=== PATIENT | male | born 1945 | race Two or more races ===

== ENCOUNTER 2017-08-01 08:42 | Emergency (ER) | payer OTHER, MEDICAID ==
[~2017-08-01] VITALS: Ht 160 cm; Wt 106.6 kg
[~2017-08-01 08:42] MED LIST: AMO250C PO; MECL-87 PO
[2017-08-01 09:09] VITALS: BP 128/76
== END 2017-08-01 09:30 | disposition home or self-care (01) ==
LOC: ER 08:42
DX: M54.41 Lumbago with sciatica, right side (principal); F17.210 Nicotine dependence, cigarettes, uncomplicated; M19.90 Unspecified osteoarthritis, unspecified site; Z88.6 Allergy status to analgesic agent; Z90.49 Acquired absence of other specified parts of digestive tract; J44.9 Chronic obstructive pulmonary disease, unspecified

== ENCOUNTER 2017-09-12 09:16 | Emergency (ER) | payer OTHER, MEDICAID ==
[~2017-09-12] VITALS: Ht 160 cm; Wt 105.2 kg
[2017-09-12 09:34] VITALS: BP 134/68
[2017-09-12] MEDS ORDERED: KETOROLAC TROMETH 60MG/2ML VIAL IM ONE (10:15)
[2017-09-12] MEDS ORDERED: HYDROcodone-ACET 10/325MG TAB PO ONE (10:15)
== END 2017-09-12 10:15 | disposition left against medical advice (07) ==
LOC: ER 09:16
DX: S33.5XXA Sprain of ligaments of lumbar spine, initial encounter (principal); J40 Bronchitis, not specified as acute or chronic; M19.90 Unspecified osteoarthritis, unspecified site; J44.9 Chronic obstructive pulmonary disease, unspecified; F17.210 Nicotine dependence, cigarettes, uncomplicated; Z79.899 Other long term (current) drug therapy; Z88.6 Allergy status to analgesic agent; X58.XXXA Exposure to other specified factors, initial encounter; Y93.89 Activity, other specified; Y92.89 Other specified places as the place of occurrence of the external cause; Y99.8 Other external cause status
CPT/HCPCS: 99282; J1885

== ENCOUNTER 2017-11-25 15:15 | Emergency (ER) | payer MEDICAID, OTHER ==
[~2017-11-25] VITALS: Ht 162.6 cm; Wt 104.3 kg
[2017-11-25 15:25] VITALS: BP 150/70
[2017-11-25] MEDS ORDERED: KETOROLAC TROMETH 60MG/2ML VIAL IM ONE (16:00)
== END 2017-11-25 19:04 | disposition home or self-care (01) ==
LOC: ER 15:18
DX: M79.604 Pain in right leg (principal); M79.1 Myalgia; F17.210 Nicotine dependence, cigarettes, uncomplicated; Z88.6 Allergy status to analgesic agent; Z88.1 Allergy status to other antibiotic agents
CPT/HCPCS: 93971

== ENCOUNTER 2019-02-24 10:58 | Emergency (ER) | payer OTHER ==
[~2019-02-24] VITALS: Ht 160 cm; Wt 114.3 kg
[2019-02-24 11:07] VITALS: BP 121/55
== END 2019-02-24 11:52 | disposition home or self-care (01) ==
LOC: ER 11:04
DX: B35.1 Tinea unguium (principal); M79.675 Pain in left toe(s); M79.674 Pain in right toe(s); G89.29 Other chronic pain; F17.210 Nicotine dependence, cigarettes, uncomplicated; Z88.6 Allergy status to analgesic agent

== ENCOUNTER 2019-03-09 18:18 | Emergency (ER) | payer OTHER ==
[~2019-03-09] VITALS: Ht 160 cm; Wt 113.4 kg
[2019-03-09 21:35] LABS: Basophils # (auto) 0.1 uL; Eosinophils # (auto) 0.3 uL; Eosinophils % (auto) 3.1 % (0.0-7.0); Hematocrit 49.3 % (41.0-53.0); Hemoglobin 16.6 g/dL (13.5-17.5); Mean Corpuscular Hemoglobin 31.4 pg (28.0-32.0); Mean Corpuscular Hgb Conc. 33.6 g/dL (32.0-36.0); Mean Corpuscular Volume 93.3 fL (80.0-100.0); Monocytes # (auto) 0.7 uL; Neutrophils # (auto) 5.4 uL; Neutrophils % (auto) 63.9 % (37.0-80.0); Platelet Count (auto) 179 10^3/uL (140-450); Red Blood Cells 5.28 10^6/uL (4.5-5.90); White Blood Cell 8.5 10^3/uL (4.4-10.8)
[2019-03-09 21:46] LABS: INR 1.22 (0.9-1.15); Partial Thromboplastin Time 31.6 sec (23.64-32.05)
[2019-03-09 21:48] LABS: Alanine Aminotransferase 32 U/L (16-61); Albumin 3.6 g/dL (3.4-5.0); Anion Gap 8 (5-15); Aspartate Aminotransferase 27 U/L (15-37); BUN/Creatinine Ratio 9.5; Blood Urea Nitrogen 12 mg/dL (7-18); Calcium 8.6 mg/dL (8.5-10.1); Carbon Dioxide 31 mmol/L (21-32); Chloride 104 mmol/L (98-107); GFR African American 72 mL/min; GFR Non-African American 60 mL/min; Glucose 115 mg/dL (74-106); Potassium 3.7 mmol/L (3.5-5.1); Sodium 143 mmol/L (136-145)
[2019-03-09 21:53] LABS: Alkaline Phosphatase 94 U/L (45-117); Bilirubin, Total 0.4 mg/dL (0.2-1.0); Total Protein 7.9 g/dL (6.4-8.2)
[2019-03-09 22:28] LABS: Urine Bacteria NONE SEEN /hpf (None Seen); Urine Blood Negative /uL (Negative); Urine Mucus FEW (None Seen); Urine WBC 3 /hpf (0 - 3)
[2019-03-09 23:15] VITALS: BP 137/71
== END 2019-03-09 23:03 | disposition home or self-care (01) ==
LOC: ER 18:26
DX: R22.43 Localized swelling, mass and lump, lower limb, bilateral (principal); I11.0 Hypertensive heart disease with heart failure; I50.9 Heart failure, unspecified; F17.210 Nicotine dependence, cigarettes, uncomplicated; Z79.899 Other long term (current) drug therapy
CPT/HCPCS: 36415; 71045; 80053; 81001; 83880; 84484; 85025; 85610; 85730; 93005; 93970

== ENCOUNTER 2019-05-24 18:53 | Emergency (ER) | payer OTHER ==
[~2019-05-24] VITALS: Ht 160 cm; Wt 114.3 kg
[2019-05-24 19:04] VITALS: BP 106/63
== END 2019-05-24 22:51 | disposition left against medical advice (07) ==
LOC: ER 18:55
DX: J02.9 Acute pharyngitis, unspecified (principal); Z53.21 Procedure and treatment not carried out due to patient leaving prior to being seen by health care provider

== ENCOUNTER 2019-07-22 13:12 | Emergency (ER) | payer OTHER ==
[~2019-07-22] VITALS: Ht 160 cm; Wt 116.1 kg
[2019-07-22 16:12] VITALS: BP 148/90
== END 2019-07-22 17:18 | disposition left against medical advice (07) ==
LOC: ER 13:12
DX: J02.9 Acute pharyngitis, unspecified (principal); Z53.21 Procedure and treatment not carried out due to patient leaving prior to being seen by health care provider